=== PATIENT | female | born 1985 | race African-American/Black ===

== ENCOUNTER 2018-12-29 23:29 | Emergency (ER) | payer MEDICAID ==
[~2018-12-29] VITALS: Ht 165.1 cm; Wt 83.0 kg
[~2018-12-29 23:29] MED LIST: IBUP-1008 PO
[2018-12-30 00:59] LABS: BASOPHILS % 1.3 % (0.0-2.0); EOSINOPHILS % 2.8 % (0.0-5.0); HEMATOCRIT. 35.3 % (36.0-48.0); HEMOGLOBIN. 11.6 g/dL (12.0-16.0); LYMPHOCYTES % 31.5 % (20.0-50.0); MEAN CORPUSCULAR VOLUME 87.9 fL (81.0-99.0); MEAN PLATELET VOLUME 8.1 fl (7.4-10.4); MONOCYTES % 6.1 % (2.0-8.0); NEUTROPHILS % 58.3 % (40.0-76.0); PLATELET 327 x1000/uL (130-400); RED BLOOD CELL COUNT 4.02 mill/uL (4.2-5.4); RED CELL DISTRIBUTION WIDTH 15.8 % (11.6-14.6)
[2018-12-30 01:04] LABS: CHLORIDE 109 mEq/L (98-107)
[2018-12-30] MEDS ORDERED: KETOROLAC 30MG/ML VIAL IV ONE (02:00)
[2018-12-30 04:17] VITALS: BP 114/77
== END 2018-12-30 04:19 | disposition home or self-care (01) ==
LOC: ER 23:29 → CANBEDREQ 12-30 04:24
DX: R07.89 Other chest pain (principal); F17.200 Nicotine dependence, unspecified, uncomplicated; F41.9 Anxiety disorder, unspecified; Z98.890 Other specified postprocedural states; Z91.041 Radiographic dye allergy status
CPT/HCPCS: 36415; 71045; 80053; 81025; 83880; 84484; 85025; 85379; 93005; 96374; 99284; J1885; Z7610

== ENCOUNTER 2019-07-26 00:33 | Emergency (ER) | payer MEDICAID ==
[~2019-07-26] VITALS: Ht 165.1 cm; Wt 90.0 kg
[2019-07-26] MEDS ORDERED: CYCLOBENZAPRINE 10MG TABLET PO ONE (01:45)
[2019-07-26] MEDS ORDERED: KETOROLAC 60MG/2ML VIAL IM ONE (01:45)
[2019-07-26 03:07] VITALS: BP 135/79
== END 2019-07-26 03:15 | disposition home or self-care (01) ==
LOC: ER 00:33
DX: M54.2 Cervicalgia (principal); M54.5 Low back pain; M25.512 Pain in left shoulder; F41.9 Anxiety disorder, unspecified; V43.52XA Car driver injured in collision with other type car in traffic accident, initial encounter; Y93.9 Activity, unspecified; Y92.410 Unspecified street and highway as the place of occurrence of the external cause; Z88.8 Allergy status to other drugs, medicaments and biological substances
CPT/HCPCS: 81025; 96372; 99283; J1885